=== PATIENT | male | born 1940 | race Caucasian/White ===

== ENCOUNTER 2018-05-30 06:20 | Day surgery (SDC) | payer MEDICARE, OTHER ==
[~2018-05-30] VITALS: Ht 167.6 cm; Wt 98.8 kg
[2018-05-30] VITALS (7 sets, daily range): BP systolic 111–125; BP diastolic 70–81; PULSE 59–66; TEMP 97.6
[~2018-05-30 06:20] MED LIST: AMOXICILLIN 8751 TAB PO; ASPRIN PO; FISH OIL1000 MG PO; LIPITOR 40MG TA40 MG PO; LISINOPRIL20 MG PO; NORCO 325 MG-7.1 TAB PO; PHENERGAN 25 TA25 MG PO
[2018-05-30 07:20] LABS: HEMOGLOBIN 10.4 g/dl (13.5-18.0); MEAN CELL VOLUME 73 fl (80.0-100.0); MEAN CORPUSCULAR HEMOGLOBIN 21 pg (27.0-31.0); MEAN CORPUSCULAR HGB CONC 29 g/dl (33.0-37.0); PLATELET COUNT 335 K/mm3 (130-400); RED BLOOD COUNT 5.02 M/mm3 (4.20-5.60); REDCELL DISTRIBUTION WIDTH-CV 18.6 % (11.5-14.5)
[2018-05-30 07:22] LABS: HEMATOCRIT 36.5 % (42.0-52.0)
[2018-05-30 07:23] LABS: INR 1.2 (0.8-3.0); PROTHROMBIN TIME 14.1 SECONDS (9.7-12.8)
[2018-05-30 07:27] LABS: CALCIUM 8.3 mg/dL (8.4-10.2); CREATININE, serum 1.01 (0.66-1.25); POTASSIUM 4.4 mmol/L (3.4-5.0)
[2018-05-30] MEDS ORDERED: NITROSTAT0.4 MG/TAB SL (07:51)
[2018-05-30] MEDS ORDERED: TOPROL XL 25MG25 MG PO ×2 (07:51→09:32)
[2018-05-30] MEDS ORDERED: [UNRECOGNIZED DRUG - OTHER] PO (07:53)
[2018-05-30] MEDS ORDERED: ELIQUIS 5MG PO (07:53)
--- NOTE | 2018-05-30 10:15 | NUR ---
dISCHARGE INSTRUCTIONS GIVEN TO PT.pT VERBALIZES UNDERSTANDING.int REMOVED,CATHETER TIP INTACT.
--- NOTE | 2018-05-30 10:35 | NUR ---
Pt escortedout via wheelchair by this nurse.
== END 2018-05-30 10:36 | disposition home or self-care (01) ==
LOC: COL.CAR 06:20
PROVIDERS: Internal Medicine Cardiovascular Disease
DX: I48.1 Persistent atrial fibrillation (principal); I25.10 Atherosclerotic heart disease of native coronary artery without angina pectoris; J30.2 Other seasonal allergic rhinitis; N40.0 Benign prostatic hyperplasia without lower urinary tract symptoms; E78.5 Hyperlipidemia, unspecified; I25.2 Old myocardial infarction; E23.0 Hypopituitarism; E66.9 Obesity, unspecified; F43.10 Post-traumatic stress disorder, unspecified; I11.0 Hypertensive heart disease with heart failure; I50.9 Heart failure, unspecified; J44.9 Chronic obstructive pulmonary disease, unspecified; D64.9 Anemia, unspecified; M19.041 Primary osteoarthritis, right hand; I08.1 Rheumatic disorders of both mitral and tricuspid valves; M19.042 Primary osteoarthritis, left hand; Z68.35 Body mass index [BMI] 35.0-35.9, adult; Z90.49 Acquired absence of other specified parts of digestive tract; Z95.1 Presence of aortocoronary bypass graft; Z95.0 Presence of cardiac pacemaker; Z88.8 Allergy status to other drugs, medicaments and biological substances; Z79.01 Long term (current) use of anticoagulants; Z82.49 Family history of ischemic heart disease and other diseases of the circulatory system; Z79.82 Long term (current) use of aspirin; Z87.891 Personal history of nicotine dependence
CPT/HCPCS: J2704

== ENCOUNTER 2019-01-17 06:54 | Day surgery (SDC) | payer BC, MEDICARE, OTHER ==
[2019-01-17] VITALS (8 sets, daily range): BP systolic 105–155; BP diastolic 71–94; PULSE 59–61; TEMP 97.5
[~2019-01-17] VITALS: Ht 168.9 cm; Wt 89.7 kg
[~2019-01-17 06:54] MED LIST changes: +ELIQUIS 5MG PO; +NITROSTAT0.4 MG/TAB SL; +TOPROL XL 25MG25 MG PO; +[UNRECOGNIZED DRUG - OTHER] PO
[2019-01-17 07:39] LABS: HEMATOCRIT 46.8 % (42.0-52.0); HEMOGLOBIN 16.3 g/dl (13.5-18.0); MEAN CELL VOLUME 83 fl (80.0-100.0); MEAN CORPUSCULAR HEMOGLOBIN 29 pg (27.0-31.0); MEAN CORPUSCULAR HGB CONC 35 g/dl (33.0-37.0); MEAN PLATELET VOLUME 8.9 fl (7.4-10.4); PLATELET COUNT 187 K/mm3 (130-400); RED BLOOD COUNT 5.62 M/mm3 (4.20-5.60); REDCELL DISTRIBUTION WIDTH-CV 13.7 % (11.5-14.5)
[2019-01-17] MEDS ORDERED: TOPROL XL 50MG50 MG PO (07:55)
[2019-01-17] MEDS ORDERED: FERROUS SU325 MG/TAB PO (07:56)
[2019-01-17 07:57] LABS: CALCIUM 9.1 mg/dL (8.4-10.2); CREATININE, serum 0.83 (0.66-1.25); POTASSIUM 3.9 mmol/L (3.4-5.0)
--- NOTE | 2019-01-17 09:40 | NUR ---
SEE MERGE REPORT FOR MEDICATION ADMINISTRATION TIMES WELL INTRA/POST SEDATION ASSESSMENT.
[2019-01-17] MEDS ORDERED: CEPHALEXIN500 M1 PO (10:20)
--- NOTE | 2019-01-17 10:34 | NUR ---
Pt returned from procedure,report from Rosendo Trent.Dressing observed clean,dry,intact.
--- NOTE | 2019-01-17 13:25 | NUR ---
Discharge instructions given to pt.Pt verbalizes understanding.INT removed,catheter tip intact.Pt escorted out via wheelchair by this nurse.
== END 2019-01-17 13:35 | disposition home or self-care (01) ==
LOC: COL.CAR 06:54
PROVIDERS: Internal Medicine Cardiovascular Disease
DX: Z45.02 Encounter for adjustment and management of automatic implantable cardiac defibrillator (principal); Z88.8 Allergy status to other drugs, medicaments and biological substances
CPT/HCPCS: C1785; J0690; J2250; J3010; J7030

== ENCOUNTER 2019-05-26 09:35 | Outpatient (RCR) | payer OTHER ==
[~2019-05-26 09:35] MED LIST changes: +CEPHALEXIN500 M1 PO; +FERROUS SU325 MG/TAB PO; +NORCO 325 MG-51 TAB PO; +TOPROL XL 50MG50 MG PO
== END 2019-07-08 12:56 | disposition home or self-care (01) ==
LOC: WSOH 09:35
DX: S46.812A Strain of other muscles, fascia and tendons at shoulder and upper arm level, left arm, initial encounter (principal); Z87.891 Personal history of nicotine dependence; Z95.0 Presence of cardiac pacemaker; Z95.1 Presence of aortocoronary bypass graft; E78.00 Pure hypercholesterolemia, unspecified; I10 Essential (primary) hypertension; I25.10 Atherosclerotic heart disease of native coronary artery without angina pectoris; Z86.79 Personal history of other diseases of the circulatory system; Y99.0 Civilian activity done for income or pay

== ENCOUNTER 2019-07-16 10:26 | Outpatient (RCR) | payer OTHER | END 2019-07-17 14:52 | disposition home or self-care (01) | LOC: WSOH 10:26 | DX: Z04.3 Encounter for examination and observation following other accident (principal); M16.11 Unilateral primary osteoarthritis, right hip; M17.11 Unilateral primary osteoarthritis, right knee; W19.XXXA Unspecified fall, initial encounter; S70.00XA Contusion of unspecified hip, initial encounter | CPT/HCPCS: 24774; L1810 ==

== ENCOUNTER → 2020-09-23 | Outpatient (CLI) | payer MEDICARE | LOC: ZCOL.LAB 16:55 | DX: L02.222 Furuncle of back [any part, except buttock and flank] (principal) ==

== ENCOUNTER → 2023-07-09 | Outpatient (CLI) | payer MEDICARE, OTHER ==
[~2023-07-09] MED LIST changes: +Iohexol 300 - 10 ML VIAL IV ONE; +Triamcinolone 40 MG/ML 1 ML VIAL IJ ONE
== END ==
LOC: COL.RAD 12:35
DX: M17.12 Unilateral primary osteoarthritis, left knee (principal)
CPT/HCPCS: J0665; J3301; Q9967